=== PATIENT | female | born 1980 | race Caucasian/White ===

== ENCOUNTER 2020-11-10 10:53 | Outpatient (RCR) | payer OTHER ==
[~2020-11-10 10:53] MED LIST: CEPHALEXIN500 M1 PO; FLEXERIL10 MG PO; LORTAB 7.5/5001 TAB PO; MOTRIN 600600 MG/TAB PO; MOTRIN 800800 MG/TAB PO; NAPROSYN500 MG PO; NORCO 325 MG-51 TAB PO; PERCOCET 325 MG1 TA2 PO; PRENATAL1 TA1 PO; PRENATAL1 TA7 PO; TRANDATE 200MG200 MG PO; TYLENOL EXTRA500 M1 PO; ZANTAC 150MG T150 MG PO; ZOLOFT
== END 2021-02-08 | disposition home or self-care (01) ==
LOC: WSOH
DX: Z77.21 Contact with and (suspected) exposure to potentially hazardous body fluids (principal); W46.0XXA Contact with hypodermic needle, initial encounter; F41.8 Other specified anxiety disorders; G43.909 Migraine, unspecified, not intractable, without status migrainosus; M45.9 Ankylosing spondylitis of unspecified sites in spine; G89.29 Other chronic pain; Y99.0 Civilian activity done for income or pay; Z98.890 Other specified postprocedural states

== ENCOUNTER 2022-06-16 06:37 | Day surgery (SDC) | payer OTHER ==
[~2022-06-16] VITALS: Ht 162.6 cm; Wt 59.8 kg
[2022-06-16 07:22] VITALS: BP 106/73; PULSE 64; TEMP 98.1
[2022-06-16] MEDS ORDERED: BUSPIRONE HCL7.5 MG PO (07:34)
[2022-06-16] MEDS ORDERED: EPA FISH OIL1 SGL PO (07:35)
[2022-06-16] MEDS ORDERED: SERTRALINE PO (07:35)
[2022-06-16] MEDS ORDERED: MULTI VITAMINS1 TAB PO (07:35)
[2022-06-16 08:05] VITALS: BP 105/63; PULSE 62; TEMP 97.8
[2022-06-16 08:15] VITALS: BP 102/63; PULSE 57
[2022-06-16 08:30] VITALS: BP 110/68; PULSE 64
--- NOTE | 2022-06-16 08:50 | NUR ---
0805: PATIENT TO BAY 4 PER CART FROM ENDO SUITE. REPORT RECEIVED FROM ENDO NURSE. VS OBTAINED. BREATHING EVEN AND UNLABORED. PATIENT DENIES ANY PAIN OR NAUSEA AT THIS TIME. RESTING IN RECLINER. DR. NICHOLAS IN TO SEE PATIENT AT THIS TIME. CALL LIGHT IN REACH. 0815: VS REMAIN STABLE. PATIENT HAS NO COMPLAINTS AT THIS TIME. REQUESTED JUICE AND CRACKERS. RESTING IN RECLINER. CALL LIGHT IN REACH. 0830: VS REMAIN STABLE. PATIENT TOLERATING FOOD AND DRINK. PATIENT HAS NO COMPLAINTS OF PAIN OR NAUSEA AT THIS TIME. PATIENT RESTING IN RECLINER. CALL LIGHT IN REACH. 0840: DISCHARGE EDUCATION COMPLETED. PATIENT STATED UNDERSTANDING OF DISCHARGE INSTRUCTIONS. DISCHARGE PAPERWORK GIVEN TO PATIENT. IV DC'D AT THIS TIME. PATIENT DENIES ANY ASSISTANCE WITH DRESSING AT THIS TIME. 0850: PATIENT OFF UNIT VIA WHEELCHAIR. PATIENT DISCHARGED TO HOME WITH VIA PERSONAL VEHICLE.
== END 2022-06-16 08:50 | disposition home or self-care (01) ==
LOC: SDCO 06:37
DX: K29.70 Gastritis, unspecified, without bleeding (principal); D50.9 Iron deficiency anemia, unspecified; F17.210 Nicotine dependence, cigarettes, uncomplicated; Z79.899 Other long term (current) drug therapy; Z83.79 Family history of other diseases of the digestive system
CPT/HCPCS: J2704